=== PATIENT | male | born 1950 | race African-American/Black ===

== ENCOUNTER 2019-03-25 19:50 | Emergency (ER) | payer MEDICARE, MEDICAID ==
[~2019-03-25] VITALS: Ht 167.6 cm; Wt 70.0 kg
[2019-03-25 19:58] VITALS: BP 163/101
[2019-03-25 21:22] LABS: CLARITY,URINE CLEAR (Clear); COLOR,URINE YELLOW (Yellow); GLUCOSE, URINE NEGATIVE (Neg); KETONES,URINE NEGATIVE (Neg); LEUKOCYTE ESTERASE ,URINE NEGATIVE (Neg); NITRITES, URINE NEGATIVE (Neg); OCCULT BLOOD,URINE MODERATE (Neg); PH,URINE 6.5 (4.8-8.0); PROTEIN,URINE NEGATIVE (Neg); UROBILINOGEN,URINE 0.2 E.U/dL (0.2-1.0)
[2019-03-25 21:23] LABS: UA COLLECTION TYPE VOIDED
[2019-03-25 21:47] LABS: WBC,URINE 0-4 /HPF (0-4)
[2019-03-25 21:48] LABS: BACTERIA,URINE NONE SEEN /HPF (Neg); MUCUS STRANDS NONE SEEN /LPF (Neg); RBC,URINE 0-2 /HPF (0-2); SQUAMOUS EPITHELIAL CELL,UR FEW /LPF (FEW)
[2019-03-25] MEDS ORDERED: PHEN-716 PO ×2 (21:49→22:05)
[2019-03-25] MEDS ORDERED: SULF1TAB49 PO (21:49)
[2019-03-25] MEDS ORDERED: phenazopyridine 100mg tablet PO ONE (21:50)
[2019-03-25] MEDS: sulfamethoxazole/trimethoprim DS (800/160mg) tablet PO ONE ×2 (21:55→21:57)
[2019-03-25 21:58] LABS: BASOPHILS % (AUTO) 0.8 % (0-1); EOSINOPHILS % (AUTO) 0.5 % (0-6); HEMATOCRIT 40.6 % (42.0-52.0); HEMOGLOBIN 13.5 g/dl (14.0-17.9); LYMPHOCYTES # (AUTO) 1.4 X10'3 (1.1-4.8); LYMPHOCYTES % (AUTO) 23.6 % (21-51); MEAN CORPUSCULAR HEMOGLOBIN 27.6 PG (27.0-31.0); MEAN CORPUSCULAR HGB CONC 33.1 g/dL (33.0-36.5); MEAN CORPUSCULAR VOLUME 83.2 FL (78-98); MONOCYTES # (AUTO) 0.6 X10'3 (0-0.9); MONOCYTES % (AUTO) 9.3 % (2-12); NEUTROPHILS % (AUTO) 65.8 % (42-75); PLATELET COUNT 284 X10'3 (140-440); RED BLOOD COUNT 4.88 X10'6 (4.70-6.10); RED CELL DISTRIBUTION WIDTH 15.2 % (11.5-14.5); WHITE BLOOD COUNT 6.1 X10'3 (4.5-11.0)
[2019-03-25 22:03] LABS: ALANINE AMINOTRANSFERASE 36 U/L (12-78); ALBUMIN 3.8 G/DL (3.4-5.0); ALBUMIN/GLOBULIN RATIO 0.9 (1.1-1.5); ALKALINE PHOSPHATASE 68 IU/L (46-116); ANION GAP 9 (8-16); ASPARTATE AMINO TRANSFERASE 21 U/L (10-37); BILIRUBIN,TOTAL 0.5 MG/DL (0.1-1.0); BLOOD UREA NITROGEN 20 MG/DL (7-18); BUN/CREATININE RATIO 16.1 (5.4-32.0); CALCIUM 8.6 MG/DL (8.5-10.1); CHLORIDE 105 MMOL/L (99-107); CREATININE 1.24 MG/DL (0.60-1.10); GLUCOSE 117 MG/DL (70-104); POTASSIUM 4.5 MMOL/L (3.5-5.1); SODIUM 138 MMOL/L (135-145); TOTAL CARBON DIOXIDE 24.1 MMOL/L (24-32); eGFR 58 ML/MIN
[2019-03-25] MEDS ORDERED: LIDOcaine 2% 10ml TOPICAL JELLY (Urojet) MM ONE (22:25)
== END 2019-03-25 23:00 | disposition home or self-care (01) ==
LOC: ER 19:51
DX: R33.9 Retention of urine, unspecified (principal); Z88.0 Allergy status to penicillin; Z79.899 Other long term (current) drug therapy; Z85.46 Personal history of malignant neoplasm of prostate
CPT/HCPCS: 36415; 51702; 80053; 81001; 85025; 99284

== ENCOUNTER 2019-03-28 11:34 | Emergency (ER) | payer MEDICARE, MEDICAID ==
[~2019-03-28] VITALS: Ht 167.6 cm; Wt 71.8 kg
[~2019-03-28 11:34] MED LIST: PHEN-716 PO; SULF1TAB49 PO
--- NOTE | 2019-03-28 12:12 | NUR ---
pt reports he WAS GIVEN BACTRIUM ABO BUT PT DID NOT FILL RX. HE PREFERS HOMEOPATHIC [place]. PT HAS A HX OF PROSTATE [place] 2015. PT STATES HE DID HOMEOPATHIC TX OF [place] UNDERSUPERVISION OF UROLOGIST.
[2019-03-28 12:58] LABS: CLARITY,URINE CLOUDY (Clear); COLOR,URINE YELLOW (Yellow); GLUCOSE, URINE NEGATIVE (Neg); KETONES,URINE NEGATIVE (Neg); LEUKOCYTE ESTERASE ,URINE LARGE (Neg); NITRITES, URINE POSITIVE (Neg); OCCULT BLOOD,URINE LARGE (Neg); PH,URINE 7.5 (4.8-8.0); PROTEIN,URINE 100 mg/dl (Neg); UROBILINOGEN,URINE 0.2 E.U/dL (0.2-1.0)
[2019-03-28 13:01] LABS: UA COLLECTION TYPE FOLEY CATH
[2019-03-28 13:03] LABS: WBC,URINE 50-100 /HPF (0-4)
[2019-03-28 13:04] LABS: BACTERIA,URINE 4+ /HPF (Neg); RBC,URINE TNTC /HPF (0-2); SQUAMOUS EPITHELIAL CELL,UR FEW /LPF (FEW); WBC CLUMPS,URINE MODERATE /HPF (NEGATIVE)
[2019-03-28 13:05] LABS: MUCUS STRANDS FEW /LPF (Neg)
[2019-03-28 13:57] VITALS: BP 162/112
[2019-03-28] MEDS ORDERED: PHEN-716 PO (14:11)
[2019-03-28] MEDS ORDERED: SULF1TAB49 PO (14:11)
== END 2019-03-28 15:36 | disposition home or self-care (01) ==
LOC: ER 11:34
DX: T83.031A Leakage of indwelling urethral catheter, initial encounter (principal); R33.9 Retention of urine, unspecified; N34.2 Other urethritis; Z79.899 Other long term (current) drug therapy; Y84.6 Urinary catheterization as the cause of abnormal reaction of the patient, or of later complication, without mention of misadventure at the time of the procedure; Y92.89 Other specified places as the place of occurrence of the external cause
CPT/HCPCS: 81001; 87077; 87088; 87186; 99283

== ENCOUNTER 2019-05-27 13:14 | Emergency (ER) | payer MEDICARE, MEDICAID ==
[~2019-05-27] VITALS: Ht 167.6 cm; Wt 62.7 kg
[~2019-05-27 13:14] MED LIST changes: -SULF1TAB49 PO
[2019-05-27 13:32] VITALS: BP 132/81
[2019-05-27] MEDS ORDERED: morphine 4 MG/ML inj SYRINge IM ONE (14:35)
--- NOTE | 2019-05-27 14:53 | NUR ---
PT STATES MORPHINE IS TOO STRONG FOR HIM, THAT HE'S VERY SENSITIVE TO MORPHINE. DOSE WASTED, PROVIDER NOTIFIED.
[2019-05-27 15:27] LABS: CLARITY,URINE SLIGHTLY CLOUDY (Clear); COLOR,URINE YELLOW (Yellow); GLUCOSE, URINE NEGATIVE (Neg); KETONES,URINE NEGATIVE (Neg); LEUKOCYTE ESTERASE ,URINE MODERATE (Neg); NITRITES, URINE POSITIVE (Neg); OCCULT BLOOD,URINE MODERATE (Neg); PROTEIN,URINE NEGATIVE (Neg); UROBILINOGEN,URINE 0.2 E.U/dL (0.2-1.0)
[2019-05-27 15:28] LABS: UA COLLECTION TYPE VOIDED
[2019-05-27 15:33] LABS: SQUAMOUS EPITHELIAL CELL,UR FEW /LPF (FEW)
[2019-05-27 15:34] LABS: BACTERIA,URINE 3+ /HPF (Neg)
[2019-05-27 15:35] LABS: WBC CLUMPS,URINE MODERATE /HPF (NEGATIVE); WBC,URINE 20-30 /HPF (0-4)
[2019-05-27 15:36] LABS: MUCUS STRANDS FEW /LPF (Neg); TRANSITIONAL EPI CELLS,URINE FEW /HPF
[2019-05-27] MEDS ORDERED: CEPH-572 PO (15:41)
== END 2019-05-27 16:12 | disposition home or self-care (01) ==
LOC: ER 13:14
DX: N39.0 Urinary tract infection, site not specified (principal); M25.552 Pain in left hip; R32 Unspecified urinary incontinence; Z88.0 Allergy status to penicillin; Z79.899 Other long term (current) drug therapy
CPT/HCPCS: 51702; 81001; 87077; 87088; 87186; 99285; J2270; 99284

== ENCOUNTER 2019-05-28 06:08 | Emergency (ER) | payer MEDICARE, MEDICAID ==
[~2019-05-28] VITALS: Ht 167.6 cm; Wt 62.7 kg
[~2019-05-28 06:08] MED LIST changes: +CEPH-572 PO
[2019-05-28] MEDS ORDERED: diphenhydrAMINE 50 mg/ml inj IV ONE (06:50)
[2019-05-28] MEDS ORDERED: LIDOcaine 2% 10ml TOPICAL JELLY (Urojet) MM ONE (06:50)
[2019-05-28] MEDS ORDERED: morphine 4 MG/ML inj SYRINge IV ONE ×3 (06:50→08:00)
--- NOTE | 2019-05-28 07:25 | NUR ---
Dr. Patel attempted to place baird catheter 16 fr without success, had a small amount of urine in catheter tubinig. Second attempt was with a 16 fr coude without success. Third attempt with 18 fr coude without success. Forth attempt with a 14 fr without success. Dribbling from the urethra is evident, no blood noted from urethra.
--- NOTE | 2019-05-28 07:40 | NUR ---
Notified Dr. Patel regarding patients blood pressure of 210/124 mmHg and pain level of 6/10 on 0-[address] Patel gave verbal order for morphine 4 mg IV once now. Will administer medication as prescribed by provider.
--- NOTE | 2019-05-28 08:29 | NUR ---
Dr. Morrissey, from urology, here to assess patient.
[2019-05-28 09:29] VITALS: BP 142/101
--- NOTE | 2019-05-28 09:34 | NUR ---
Dr. Morrissey placed a 16 fr catheter with a 10 mL balloon after dilating urethra. Patient tolerated procedure well. Urine return from catheter by Dr. Morrissey after flushing catheter with approx. 500 mL of sterile water. Dr[address] Patel notified regarding placement and notified regarding patients blood pressure of 142/101 [address] on [address] cuff[address] Patel stated that he would get discharge instructions completed.
== END 2019-05-28 10:00 | disposition home or self-care (01) ==
LOC: ER 06:08
DX: R33.9 Retention of urine, unspecified (principal); I10 Essential (primary) hypertension; Z98.890 Other specified postprocedural states; Z88.0 Allergy status to penicillin; Z79.2 Long term (current) use of antibiotics; Z79.899 Other long term (current) drug therapy
CPT/HCPCS: 51701; 96374; 96375; 96376; 99284; J1200; J2270

== ENCOUNTER 2019-08-09 10:01 | Emergency (ER) | payer MEDICARE, MEDICAID ==
[~2019-08-09] VITALS: Ht 167.6 cm; Wt 70.9 kg
[~2019-08-09 10:01] MED LIST changes: -CEPH-572 PO
[2019-08-09 11:00] VITALS: BP 185/126
[2019-08-09 11:20] LABS: CLARITY,URINE SLIGHTLY CLOUDY (Clear); COLOR,URINE STRAW (Yellow); GLUCOSE, URINE NEGATIVE (Neg); KETONES,URINE NEGATIVE (Neg); LEUKOCYTE ESTERASE ,URINE SMALL (Neg); NITRITES, URINE NEGATIVE (Neg); OCCULT BLOOD,URINE NEGATIVE (Neg); PROTEIN,URINE NEGATIVE (Neg); UROBILINOGEN,URINE 0.2 E.U/dL (0.2-1.0)
[2019-08-09 11:22] LABS: UA COLLECTION TYPE URINAL
[2019-08-09] MEDS ORDERED: opium/belladonna alkaloids No. 15A 30mg rectal suppository RC ONE (11:25)
[2019-08-09 11:27] LABS: BACTERIA,URINE 4+ /HPF (Neg); RBC,URINE 0-2 /HPF (0-2); SQUAMOUS EPITHELIAL CELL,UR FEW /LPF (FEW); WBC CLUMPS,URINE FEW /HPF (NEGATIVE)
[2019-08-09] MEDS ORDERED: B030R RC (12:17)
[2019-08-09] MEDS ORDERED: CEPH500C5 PO (12:17)
[2019-08-10] MEDS ORDERED: HYDR-3965 PO (13:48)
[2019-08-10] MEDS ORDERED: OXYB5TAB29 PO (13:48)
== END 2019-08-09 12:46 | disposition home or self-care (01) ==
LOC: ER 10:01
DX: N40.1 Benign prostatic hyperplasia with lower urinary tract symptoms (principal); N32.89 Other specified disorders of bladder; I10 Essential (primary) hypertension; Z98.890 Other specified postprocedural states; Z88.0 Allergy status to penicillin; Z79.899 Other long term (current) drug therapy
CPT/HCPCS: 81001; 87077; 87088; 87186; 99284

== ENCOUNTER 2019-08-10 05:39 | Emergency (ER) | payer MEDICARE, MEDICAID ==
[~2019-08-10] VITALS: Ht 167.6 cm; Wt 70.9 kg
[~2019-08-10 05:39] MED LIST changes: +B030R RC; +CEPH500C5 PO
[2019-08-10] MEDS ORDERED: LIDOcaine 2% 10ml TOPICAL JELLY (Urojet) MM ONE ×2 (05:45→07:20)
[2019-08-10] MEDS ORDERED: opium/belladonna alkaloids No. 15A 30mg rectal suppository RC PRN (05:55)
--- NOTE | 2019-08-10 06:08 | NUR ---
DR. AUSTIN UPDATED THAT PT ADMINISTERED BELLADONNA SUPPOSITORY RECTALLY YESTERDAY WHEN HERE AND IT HELPED HIM TO VOID. PT GIVEN PERSCRIPTION FOR THIS BUT WAS UNABLE TO FILL AT HIS PHARMACY AND HIS INSURANCE WOULD NOT COVER IT. MED ORDERED AND PT JUST GIVEN MED. ONE ATTEMPT AT PLACEING 16F COUDE UNSUCCESSFUL.
--- NOTE | 2019-08-10 06:31 | NUR ---
dr pierre updated that pt with a lot of relief now after receivinig belladonna suppository. pt only able to dribble a small amt. Dr Pierre updated.
[2019-08-10] MEDS ORDERED: oxybutynin 5mg tablet PO ONE (08:20)
[2019-08-10] MEDS ORDERED: HYDROcodone/acetaminophen 5mg/325mg tablet PO ONE (08:25)
--- NOTE | 2019-08-10 08:53 | NUR ---
Unsuccessful attempt at placing baird using coude. Call out to Dr Morrissey for baird placement.
--- NOTE | 2019-08-10 10:21 | NUR ---
Waiting on Dr holloway to come and place baird around noon.
--- NOTE | 2019-08-10 11:42 | NUR ---
Pt has voided 600mls of clear urine.
--- NOTE | 2019-08-10 12:35 | NUR ---
DR JONES ASKED FOR ANOTHER POST VOID SCAN BEFORE SHE COMES IN FOR BOTELLO PLACEMENT, RESULTED 399ML. UROLOGY CART PLACED
[2019-08-10] MEDS ORDERED: OXYB5TAB29 PO (13:48)
[2019-08-10] MEDS ORDERED: HYDR-3965 PO (13:48)
[2019-08-10 14:25] VITALS: BP 152/113
== END 2019-08-10 14:27 | disposition home or self-care (01) ==
LOC: ER 05:39
DX: R33.9 Retention of urine, unspecified (principal); I10 Essential (primary) hypertension; N35.919 Unspecified urethral stricture, male, unspecified site; Z85.9 Personal history of malignant neoplasm, unspecified; Z90.79 Acquired absence of other genital organ(s); Z88.0 Allergy status to penicillin; Z79.899 Other long term (current) drug therapy
CPT/HCPCS: 51702; 99284

== ENCOUNTER 2019-12-30 08:47 | Emergency (ER) | payer MEDICARE, MEDICAID ==
[~2019-12-30] VITALS: Ht 167.6 cm; Wt 68.0 kg
[~2019-12-30 08:47] MED LIST changes: -B030R RC; -CEPH500C5 PO; +OXYB5TAB29 PO
[2019-12-30] MEDS ORDERED: opium/belladonna alkaloids No. 15A 30mg rectal suppository RC STA (09:18)
[2019-12-30 09:44] LABS: BASOPHILS # (AUTO) 0.1 X10'3 (0-0.2); BASOPHILS % (AUTO) 1.2 % (0-1); EOSINOPHILS # (AUTO) 0.1 X10'3 (0-0.9); EOSINOPHILS % (AUTO) 1.9 % (0-6); HEMATOCRIT 39.9 % (42.0-52.0); HEMOGLOBIN 13.1 g/dl (14.0-17.9); LYMPHOCYTES # (AUTO) 1.2 X10'3 (1.1-4.8); LYMPHOCYTES % (AUTO) 20.1 % (21-51); MEAN CORPUSCULAR HGB CONC 32.9 g/dL (33.0-36.5); MEAN CORPUSCULAR VOLUME 82.1 FL (78-98); MEAN PLATELET VOLUME 7.7 FL (7.4-10.4); MONOCYTES # (AUTO) 0.5 X10'3 (0-0.9); MONOCYTES % (AUTO) 8.6 % (2-12); NEUTROPHILS # (AUTO) 4.2 X10'3 (1.8-7.7); NEUTROPHILS % (AUTO) 68.2 % (42-75); PLATELET COUNT 288 X10'3 (140-440); RED BLOOD COUNT 4.85 X10'6 (4.70-6.10); RED CELL DISTRIBUTION WIDTH 17.4 % (11.5-14.5); WHITE BLOOD COUNT 6.2 X10'3 (4.5-11.0)
[2019-12-30 09:58] LABS: ALANINE AMINOTRANSFERASE 29 U/L (12-78); ALBUMIN 3.7 G/DL (3.4-5.0); ALBUMIN/GLOBULIN RATIO 0.9 (1.1-1.5); ALKALINE PHOSPHATASE 98 IU/L (46-116); ANION GAP 9 (8-16); ASPARTATE AMINO TRANSFERASE 17 U/L (10-37); BILIRUBIN,TOTAL 0.5 MG/DL (0.1-1.0); BLOOD UREA NITROGEN 15 MG/DL (7-18); BUN/CREATININE RATIO 12.6 (5.4-32.0); CALCIUM 8.6 MG/DL (8.5-10.1); CHLORIDE 105 MMOL/L (99-107); CREATININE 1.19 MG/DL (0.60-1.10); GLUCOSE 94 MG/DL (70-104); LIPASE 127 U/L (73-393); POTASSIUM 4.1 MMOL/L (3.5-5.1); SODIUM 138 MMOL/L (135-145); eGFR 73 ML/MIN
[2019-12-30 10:35] LABS: CLARITY,URINE SLIGHTLY CLOUDY (Clear); COLOR,URINE ORANGE (Yellow)
[2019-12-30 10:41] LABS: UA COLLECTION TYPE STRAIGHT CATH
[2019-12-30 10:43] LABS: BACTERIA,URINE FEW /HPF (Neg); MUCUS STRANDS NONE SEEN /LPF (Neg); RBC,URINE TNTC /HPF (0-2); SQUAMOUS EPITHELIAL CELL,UR FEW /LPF (FEW); WBC CLUMPS,URINE FEW /HPF (NEGATIVE)
[2019-12-30] MEDS ORDERED: HYDROmorphone inj. 0.5 MG/0.5 ML DISP.SYRIN IV ONE (11:10)
[2019-12-30] MEDS ORDERED: CEPH250T PO (12:07)
[2019-12-30] MEDS ORDERED: ONDA4TAB6 PO (12:07)
[2019-12-30] MEDS ORDERED: HYDR-4383 PO (12:07)
[2019-12-30 12:30] VITALS: BP 125/87
== END 2019-12-30 12:30 | disposition home or self-care (01) ==
LOC: ER 08:48
DX: R33.9 Retention of urine, unspecified (principal); T85.9XXA Unspecified complication of internal prosthetic device, implant and graft, initial encounter; I10 Essential (primary) hypertension; Z85.9 Personal history of malignant neoplasm, unspecified; Z98.890 Other specified postprocedural states; Z88.0 Allergy status to penicillin; Z79.899 Other long term (current) drug therapy
CPT/HCPCS: 36415; 51702; 80053; 81001; 83690; 85025; 87088; 96374; 99284; J1170